=== PATIENT | male | born 1985 | race Caucasian/White ===

== ENCOUNTER 2018-06-16 21:04 | Emergency (ER) | payer SELFPAY ==
[~2018-06-16] VITALS: Ht 175.3 cm; Wt 91.0 kg
[2018-06-16] MEDS ORDERED: ONDANSETRON HCL 4MG/2ML INJ IV STA (22:37)
[2018-06-16] MEDS ORDERED: SODIUM CHLORIDE 0.9% 1,000 ML IV ONE (22:37)
[2018-06-16] MEDS ORDERED: MORPHINE SULFATE 4 MG/ML CPJ (NOT FOR IM USE) IV STA (22:37)
[2018-06-16 22:53] LABS: BASOPHILS % 0.7 % (0.0-2.0); CHLORIDE 107 mEq/L (98-107); EOSINOPHILS % 3.1 % (0.0-5.0); HEMATOCRIT. 43.1 % (42.0-52.0); HEMOGLOBIN. 14.8 g/dL (14.0-18.0); LYMPHOCYTES % 25.3 % (20.0-50.0); MEAN CORPUSCULAR HEMOGLOBIN 32.3 pg (28.0-32.0); MEAN PLATELET VOLUME 8.9 fl (7.4-10.4); MONOCYTES % 9.5 % (2.0-8.0); NEUTROPHILS % 61.4 % (40.0-76.0); PLATELET 280 x1000/uL (130-400); RED BLOOD CELL COUNT 4.59 mill/uL (4.7-6.1); RED CELL DISTRIBUTION WIDTH 13.5 % (11.6-14.6)
[2018-06-17 00:15] LABS: CLARITY URINE CLEAR (CLEAR); COLOR URINE YELLOW (YELLOW); KETONES URINE TRACE (NEGATIVE); LEUKOCYTE ESTERASE URINE NEGATIVE (NEGATIVE); NITRITE URINE NEGATIVE (NEGATIVE); OCCULT BLOOD URINE NEGATIVE (NEGATIVE); PROTEIN URINE NEGATIVE (NEGATIVE); SPECIFIC GRAVITY URINE 1.026 (1.005-1.030); UROBILINOGEN URINE 0.2 E.U./dL (0.2-1.0)
[2018-06-17 01:28] VITALS: BP 127/81
== END 2018-06-17 01:30 | disposition home or self-care (01) ==
LOC: ER 22:38 → CANBEDREQ 06-17 05:20
DX: R10.12 Left upper quadrant pain (principal); F12.10 Cannabis abuse, uncomplicated
CPT/HCPCS: 36415; 71045; 74176; 80053; 81003; 83690; 84484; 85025; 96374; 99285; J2405; J7030; Z7610; J2270